=== PATIENT | male | born 1990 | race Hispanic/Latino ===

== ENCOUNTER 2023-08-04 09:50 | Emergency (ER) | payer SELFPAY ==
[2023-08-04] MEDS ORDERED: KETOROLAC 30 MG/ML INJ ONE (10:38)
[2023-08-04] MEDS ORDERED: CYCLOBENZAPRINE 10 MG TAB ONE (10:38)
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
[2023-08-04 11:45] VITALS: BP 147/91; TEMP 98.3; O2SAT 100
== END 2023-08-04 11:22 | disposition home or self-care (01) ==
LOC: ER 09:50
DX: S13.4XXA Sprain of ligaments of cervical spine, initial encounter (principal); V43.52XA Car driver injured in collision with other type car in traffic accident, initial encounter; Y93.89 Activity, other specified; Y92.9 Unspecified place or not applicable
CPT/HCPCS: 70450; 72125; 96372; 99284